=== PATIENT | female | born 1985 | race Caucasian/White ===

== ENCOUNTER 2023-05-08 16:05 | Emergency (ER) | payer OTHER ==
[~2023-05-08] VITALS: Ht 160 cm; Wt 86.1 kg
[2023-05-08] MEDS ORDERED: NS IV 1000 ML 1,000 ML IV STA ×2 (16:28→17:30)
[2023-05-08] MEDS ORDERED: KETOROLAC INJ 30 MG/ML VIAL IVP ONE (16:30)
--- NOTE | 2023-05-08 16:32 | ED Abdominal Pain ---
General Chief Complaint: Abdominal/GI Problems Stated Complaint: ABD/MID BACK PAIN/VOMITING Source of Information: Patient Exam Limitations: No Limitations (MARCUS VASQUEZ) History of Present Illness Date Seen by Provider: May 08, 2023 Time Seen by Provider: 16:30 Initial Comments Patient is a 37-year-old female presents ED with abdominal pain. Abdominal pain started Thursday. Pain is described as burning constant. Pain radiate bilateral flank. Patient reports nausea with episodes of vomiting. Denies any diarrhea. She has been taken ibuprofen without much improvement associated body aches. She tested negative for COVID and influenza. History of cholecystectomy and umbilical hernia repair. Denies any vaginal discharge or vaginal pain, vaginal bleeding or on her current menstrual cycle. No history of kidney stones. Denies history of similar type symptoms. She denies any fever, chest pain, cough, sore throat, ear pain, headache, dysuria, hematuria, increased urine frequency. States she does not feel well. (MARCUS VASQUEZ) Allergies and Home Medications Allergies Coded Allergies: cephalexin (Verified Allergy, Unknown, 05/08/23) duloxetine (Verified Allergy, Unknown, 05/08/23) latex (Verified Allergy, Unknown, 05/08/23) Patient Home Medication List Home Medication List Reviewed: Yes (MARCUS VASQUEZ) Ketorolac Tromethamine (Ketorolac Tromethamine) 10 Mg Tablet, 10 MG PO TID Prescribed by: VERÓNICA MOORE on 05/08/231927 Ondansetron (Ondansetron Odt) 8 Mg Tab.rapdis, 8 MG SL Q6H PRN for NAUSEA/VOMITING Prescribed by: PASCUAL MORTON MD on 05/09/23 0037 Discontinued Medications Ketorolac Tromethamine (Ketorolac Tromethamine) 10 Mg Tablet, 10 MG PO TID Prescribed by: VERÓNICA MOORE on 05/08/23 1906 Review of Systems Review of Systems Constitutional: No diaphoresis, No fever; malaise, weakness EENTM: No Double Vision, No Eye Pain Respiratory: Denies Cough Gastrointestinal: Abdominal Pain; Denies Diarrhea; Nausea, Vomiting Genitourinary: Denies Burning, Denies Discharge, Denies Drainage Musculoskeletal: back pain Skin: No change in color, No change in hair/nails (MARCUS VASQUEZ) All Other Systems Reviewed Negative Unless Noted: Yes (MARCUS VASQUEZ) Past Ibflxbc-Ecuade-Mdwujl Hx Patient Social History Tobacco Use?: Yes Tobacco type used: Cigarettes Substance use?: No Alcohol Use?: No (MARCUS VASQUEZ) Past Medical History Surgery/Hospitalization HX: GALLBLADDER REMOVED, HERNIA REPAIR (MARCUS VASQUEZ) Physical Exam Vital Signs Vital Signs - First Documented 05/08/23 16:26 Temp 37.0 Pulse 105 B/P (MAP) 124/62 (82) Pulse Ox 98 O2 Delivery Room Air (CESAR STINSON MD) Vital Signs Capillary Refill : (MARCUS VASQUEZ) Height/Weight/BMI Height: '" Weight: lbs. oz. 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, no motor/sensory deficits, alert, normal mood/affect, oriented x 3 Skin: normal color, warm/dry (MARCUS VASQUEZ) Focused Exam Lactate Level 05/08/23 16:38: Lactic Acid Level 2.77*H (CESAR STINSON MD) Lactic Acid Level Laboratory Tests Test 05/08/23 16:38 Lactic Acid Level 2.77 MMOL/L (0.50-2.00) *H (CESAR STINSON MD) Progress/Results/Core Measures Results/Orders Lab Results Laboratory Tests Test 05/08/23 16:28 05/08/23 16:32 05/08/23 16:38 05/08/23 17:55 Range/Units White Blood Count 4.7 4.3-11.0 10^3/uL Red Blood Count 4.61 3.80-5.11 10^6/uL Hemoglobin 12.9 11.5-16.0 g/dL Hematocrit 40 35-52 % Mean Corpuscular Volume 86 80-99 fL Mean Corpuscular Hemoglobin 28 25-34 pg Mean Corpuscular Hemoglobin Concent 32 32-36 g/dL Red Cell Distribution Width 13.3 10.0-14.5 % Platelet Count 159 130-400 10^3/uL Mean Platelet Volume 9.5 9.0-12.2 fL Immature Granulocyte % (Auto) 0 % Neutrophils (%) (Auto) 79 H 42-75 % Lymphocytes (%) (Auto) 15 12-44 % Monocytes (%) (Auto) 6 0-12 % Eosinophils (%) (Auto) 0 0-10 % Basophils (%) (Auto) 0 0-10 % Neutrophils # (Auto) 3.7 1.8-7.8 10^3/uL Lymphocytes # (Auto) 0.7 L 1.0-4.0 10^3/uL Monocytes # (Auto) 0.3 0.0-1.0 10^3/uL Eosinophils # (Auto) 0.0 0.0-0.3 10^3/uL Basophils # (Auto) 0.0 0.0-0.1 10^3/uL Immature Granulocyte # (Auto) 0.0 0.0-0.1 10^3/uL Sodium Level 141 135-145 MMOL/L Potassium Level 4.1 3.6-5.0 MMOL/L Chloride Level 112 H 98-107 MMOL/L Carbon Dioxide Level 18 L 21-32 MMOL/L Anion Gap 11 5-14 MMOL/L Blood Urea Nitrogen 10 7-18 MG/DL Creatinine 0.56 L 0.60-1.30 MG/DL Estimat Glomerular Filtration Rate 121 BUN/Creatinine Ratio 18 Glucose Level 195 H 70-105 MG/DL Calcium Level 8.4 L 8.5-10.1 MG/DL Corrected Calcium 8.8 8.5-10.1 MG/DL Total Bilirubin 0.3 0.1-1.0 MG/DL Aspartate Amino Transf (AST/SGOT) 16 5-34 U/L Alanine Aminotransferase (ALT/SGPT) 31 0-55 U/L Alkaline Phosphatase 119 40-136 U/L Total Protein 6.3 L 6.4-8.2 GM/DL Albumin 3.5 3.2-4.5 GM/DL Lipase 34 8-78 U/L Urine Color YELLOW Urine Clarity CLEAR Urine pH 6.5 5-9 Urine Specific [place] 1.020 1.016-1.022 Urine Protein NEGATIVE NEGATIVE Urine Glucose (UA) TRACE H NEGATIVE Urine Ketones NEGATIVE NEGATIVE Urine Nitrite NEGATIVE NEGATIVE Urine Bilirubin NEGATIVE NEGATIVE Urine Urobilinogen 0.2 < = 1.0 MG/DL Urine Leukocyte Esterase NEGATIVE NEGATIVE Urine RBC (Auto) NEGATIVE NEGATIVE Urine RBC NONE /HPF Urine WBC NONE /HPF Urine Squamous Epithelial Cells 0-2 /HPF Urine Crystals NONE /LPF Urine Bacteria NEGATIVE /HPF Urine Casts NONE /LPF Urine Mucus NEGATIVE /LPF Urine Culture Indicated NO Urine Test NEGATIVE NEGATIVE Lactic Acid Level 2.77 *H 0.50-2.00 MMOL/L Influenza Type A (RT-PCR) Not Detected Not Detecte Influenza Type B (RT-PCR) Not Detected Not Detecte SARS-CoV-2 RNA (RT-PCR) Detected H Not Detecte (CESAR STINSON MD) Vital Signs/I&O 05/08/23 05/08/23 16:26 18:59 Temp 37.0 Pulse 105 83 B/P (MAP) 124/62 (82) 118/58 Pulse Ox 98 98 O2 Delivery Room Air Room Air (CESAR STINSON MD) Departure Communication (PCP) Patient is a 37-year-old female who presents to the ED for flulike symptoms. Differential diagnosis viral syndrome, UTI, nephrolithiasis, colitis, appendicitis. Patient symptoms started 4 days ago. Tested negative twice for COVID influenza. She was slightly tachycardic but was not hypoxic. CBC, CMP, lipase, urinalysis with test was initiated. Did add a COVID influenza per her request for potential false negatives. CBC, CMP was grossly unremarkable. Lactic acid 2.77 was added as she was slightly tachycardic but afebrile with normal white blood count. CT abdomen pelvis was ordered secondary to lower abdominal pain. She did receive Toradol without much improvement and d id receive fentanyl with improvement of pain. CT abdomen pelvis was negative for acute abnormality. She did receive a second liter of fluid after her lactic acid returned slightly elevated. She does not appear septic and this likely more reactive. Lung sounds clear bilateral. COVID returned positive. She does not meet the criteria for antiviral treatment. Continue with conservative treatment at this time. Will discharge with some anti-inflammatories. Recommend staying hydrated. If any worsening symptoms such as chest pain or shortness of breath return back to ED. (MARCUS VASQUEZ) Impression Primary Impression: COVID-19 Disposition: 01 HOME, SELF-CARE Condition: Stable Departure-Patient Inst. Decision time for Depature: 18:53 (MARCUS VASQUEZ) Referrals: [facility],LOCAL PHYSICIAN (PCP) Primary Care Physician Patient Instructions: COVID-19 ED Add. Discharge Instructions: Recommend staying hydrated. Drink plenty of fluids. Tylenol or ibuprofen for pain. If any worsening symptoms return back to ED such as shortness of breath, All discharge instructions reviewed with patient and/or family. Voiced understanding. Scripts Ketorolac Tromethamine (Ketorolac Tromethamine) 10 Mg Tablet 10 MG PO TID for Pain, #15 TAB Prov: MARCUS VASQUEZ 05/08/23 Work/School Note: Work Release Form Date Seen in the Emergency Department: May 08, 2023 Return to Work: May 12, 2023 ATTENDING PHYSICIAN NOTE: I was physically present as attending physician in the emergency department during the care of this patient, but I was not directly involved in the decision making or delivery of care for this patient. (CESAR STINSON MD) MARCUS VASQUEZ May 08, 2023 16:32 CESAR STINSON MD May 11, 2023 07:27
[2023-05-08 16:41] LABS: BASOPHILS % (AUTO) 0 % (0-10); EOSINOPHILS % (AUTO) 0 % (0-10); HEMATOCRIT 40 % (35-52); HEMOGLOBIN 12.9 g/dL (11.5-16.0); LYMPHOCYTES # (AUTO) 0.7 10^3/uL (1.0-4.0); LYMPHOCYTES % (AUTO) 15 % (12-44); MEAN CORPUSCULAR HEMOGLOBIN 28 pg (25-34); MEAN CORPUSCULAR HGB CONC 32 g/dL (32-36); MEAN CORPUSCULAR VOLUME 86 fL (80-99); MEAN PLATELET VOLUME 9.5 fL (9.0-12.2); MONOCYTES # (AUTO) 0.3 10^3/uL (0.0-1.0); MONOCYTES % (AUTO) 6 % (0-12); NEUTROPHILS # (AUTO) 3.7 10^3/uL (1.8-7.8); NEUTROPHILS % (AUTO) 79 % (42-75); PLATELET COUNT 159 10^3/uL (130-400); WHITE BLOOD COUNT 4.7 10^3/uL (4.3-11.0)
[2023-05-08 16:47] LABS: CLARITY,URINE CLEAR; COLOR,URINE YELLOW; GLUCOSE, URINE (UA) TRACE (NEGATIVE); KETONES,URINE NEGATIVE (NEGATIVE); PH,URINE 6.5 (5-9); PROTEIN,URINE NEGATIVE (NEGATIVE)
[2023-05-08 16:48] LABS: BILIRUBIN,URINE NEGATIVE (NEGATIVE); LEUKOCYTE ESTERASE ,URINE NEGATIVE (NEGATIVE); NITRITE,URINE NEGATIVE (NEGATIVE)
[2023-05-08 16:49] LABS: BACTERIA,URINE NEGATIVE /HPF; SQUAMOUS EPITHELIAL CELL,UR 0-2 /HPF
[2023-05-08 17:01] LABS: ALBUMIN 3.5 GM/DL (3.2-4.5); BILIRUBIN,TOTAL 0.3 MG/DL (0.1-1.0); CALCIUM 8.4 MG/DL (8.5-10.1); CREATININE SERUM 0.56 MG/DL (0.60-1.30); POTASSIUM 4.1 MMOL/L (3.6-5.0); TOTAL PROTEIN 6.3 GM/DL (6.4-8.2)
--- NOTE | 2023-05-08 17:26 | Diagnostic Imaging Report ---
PROCEDURE: CT urinary tract, rule out kidney stone. TECHNIQUE: Multiple contiguous axial images were obtained through the abdomen and pelvis without the use of intravenous contrast. Auto Exposure Controls were utilized during the CT exam to meet ALARA standards for radiation dose reduction. INDICATION: Abdominal pain, bilateral flank pain. COMPARISON: None. FINDINGS: Included lung bases are clear. The liver, spleen, and adrenal glands are normal. Gallbladder is postsurgical. The pancreas is normal. The kidneys are normal. No nephrolithiasis or hydronephrosis. The aorta and IVC are normal. No abdominal pelvic lymphadenopathy. The bowel is nondilated. Normal appendix. No free air, loculated fluid collections, or ascites. Postsurgical changes from prior ventral hernia repair. No apparent hernia recurrence. The urinary bladder is normal. The osseous structures demonstrate no lytic or sclerotic bone lesions. IMPRESSION: No acute findings in the abdomen or pelvis. Dictated by: Dictated on workstation # [id number]
[2023-05-08] MEDS ORDERED: fentaNYL INJECTION 100 MCG/2 ML VIAL IVP STA (17:30)
[2023-05-08 18:59] VITALS: BP 118/58
[2023-05-08] MEDS ORDERED: KETO10TA PO ×2 (19:06→19:28)
[2023-05-09] MEDS ORDERED: ONDA8TAB13 SL (00:37)
== END 2023-05-08 19:00 | disposition home or self-care (01) ==
LOC: ER 16:09
DX: U07.1 COVID-19 (principal); R11.2 Nausea with vomiting, unspecified; R10.31 Right lower quadrant pain; R10.32 Left lower quadrant pain; F17.210 Nicotine dependence, cigarettes, uncomplicated; Z91.040 Latex allergy status
CPT/HCPCS: 36415; 74176; 80053; 81000; 83605; 83690; 84703; 85025; 87636; 96361; 96374; 96375

== ENCOUNTER 2023-05-09 00:23 | Emergency (ER) | payer OTHER ==
[~2023-05-09] VITALS: Ht 160 cm; Wt 86.2 kg
[~2023-05-09 00:23] MED LIST: KETO10TA PO
[2023-05-09 00:27] VITALS: BP 125/75
[2023-05-09] MEDS ORDERED: ONDANSETRON 4 MG ORAL DISSOLVE TABLET PO STA (00:31)
--- NOTE | 2023-05-09 00:35 | ED General ---
General Chief Complaint: COVID19 Suspect/Confirmed Stated Complaint: SOB,CP Nursing Triage Note: PT TO ROOM BY [facility]. PT REPORTS INCREASING SOB AND CP SINCE BEING DISCHARGED FROM HERE EARLIER WITH A COVID DIAGNOSIS. PT IS A&OX4, SPEECH NORMAL ON ARRIVAL Source of Information: Patient, EMS Exam Limitations: No Limitations History of Present Illness Date Seen by Provider: May 09, 2023 Time Seen by Provider: 00:24 Initial Comments 37-year-old female presents to the emergency department today via EMS for shortness of breath. She was seen earlier in our emergency department and diagnosed with COVID-19. She states she was lying down to take her anxiety medicine and then started feeling "[id number] in my chest." She then got short of breath and felt more anxious she has had burning in her stomach as well. Symptoms present for about 4 days. Work-up earlier in the day included CT scan of her abdomen pelvis which was negative for any acute intra-abdominal abnormality. She also had lab work with a slightly elevated lactic acid of 2.77. She was given 2 L of IV fluids. Again COVID test was positive her chest x-ray was negative for any acute findings her oxygen saturation was normal and her tachycardia improved with IV fluids. She was discharged home with p.o. Toradol. She is having some nausea but no vomiting. All other systems reviewed and negative except documented per HPI. Voice recognition software was used to help create this chart Allergies and Home Medications Allergies Coded Allergies: cephalexin (Verified Allergy, Unknown, 05/08/23) duloxetine (Verified Allergy, Unknown, 05/08/23) latex (Verified Allergy, Unknown, 05/08/23) Patient Home Medication List Home Medication List Reviewed: Yes Ketorolac Tromethamine (Ketorolac Tromethamine) 10 Mg Tablet, 10 MG PO TID Prescribed by: VERÓNICA MOORE on 05/08/231927 Discontinued Medications Ketorolac Tromethamine (Ketorolac Tromethamine) 10 Mg Tablet, 10 MG PO TID Prescribed by: VERÓNICA MOORE on 05/08/231905 Review of Systems Review of Systems Constitutional: see HPI Past Ehdltsy-Cjiyah-Czqjok Hx Patient Social History Tobacco Use?: No Use of E-Cig and/or Vaping dev: No Substance use?: No Alcohol Use?: No Past Medical History Surgery/Hospitalization HX: GALLBLADDER REMOVED, HERNIA REPAIR Physical Exam Vital Signs Vital Signs - First Documented 05/09/23 00:27 Temp 36.6 Pulse 85 Resp 22 B/P (MAP) 125/75 (92) Pulse Ox 99 O2 Delivery Room Air Capillary Refill : Height, Weight, BMI Height: '" Weight: lbs. oz. kg; 33.00 BMI Method: General Appearance: No Apparent Distress, WD/WN Eyes: Bilateral Eye Normal Inspection, Bilateral Eye PERRL, Bilateral Eye EOMI HEENT: Normal ENT Inspection, Pharynx Normal Neck: Full Range of Motion, Non Tender, Supple Respiratory: Chest Non Tender, Lungs Clear, Normal Breath Sounds, No Accessory Muscle Use, No Respiratory Distress Cardiovascular: Regular Rate, Rhythm, No Murmur, Normal Peripheral Pulses Gastrointestinal: Normal Bowel Sounds, No Organomegaly, Non Tender, Soft Back: Normal Inspection, No CVA Tenderness Extremity: Normal Capillary Refill, Normal Inspection Neurologic/Psychiatric: Alert, Oriented x3, Normal Mood/Affect Skin: Normal Color, Warm/Dry Progress/Results/Core Measures Suspected Sepsis SIRS Temperature: Pulse: 85 Respiratory Rate: 22 Blood Pressure 125 /75 Mean: 92 Results/Orders My Orders Orders - SELENEPASCUAL MOJICA DO Ondansetron Oral Dissolve Tab (Ondanset (05/09/23 00:31) Acetaminophen Tablet (Acetaminophen Ta (05/09/23 00:45) Vital Signs/I&O 05/09/23 00:27 Temp 36.6 Pulse 85 Resp 22 B/P (MAP) 125/75 (92) Pulse Ox 99 O2 Delivery Room Air Capillary Refill : Blood Pressure Mean: 92 Departure Communication (Admissions) Patient is hemodynamically stable, nontoxic. Oxygen saturations 90 to 99% on room air. She is in no respiratory distress. She had a full work-up earlier in the day including CT abdomen/pelvis with IV contrast, labs. She was slightly tachycardic upon her initial arrival which improved with 2 L of IV fluids. CT scan was negative and labs were otherwise reassuring. COVID test was positive at that time. She has no new symptoms now but does state that nausea is more prominent feature at present. Have given her p.o. Zofran. P.o. Tylenol. She is not a candidate for Paxlovid. She will be discharged in stable condition with prescription for Zofran and supportive care. Impression Primary Impression: COVID-19 Additional Impression: Nausea Disposition: 01 HOME, SELF-CARE Condition: Stable Departure-Patient Inst. Referrals: NO,LOCAL PHYSICIAN (PCP/Family) Primary Care Physician Patient Instructions: Nausea and Vomiting, Adult, COVID-19 ED Add. Discharge Instructions: All of your symptoms are consistent with COVID-19 infection. Increase your fluids at home and rest. Use the nausea medicine as needed by dissolving it under your tongue. Continue to take the ketorolac at home for body aches. You may take Tylenol in addition to this but do not take any other anti-inflammatory medicines while taking this. You are very likely to feel somewhat short of br eath and have aches, headaches and nausea. Return to the emergency department for any severe shortness of breath or if your symptoms change in any way concerning to you. Follow with your primary doctor for any nonemergent needs All discharge instructions reviewed with patient and/or family. Voiced understanding. Scripts Ondansetron (Ondansetron Odt) 8 Mg Tab.rapdis 8 MG SL Q6H PRN for NAUSEA/VOMITING for 5 Days, #20 TAB Prov: PASCUAL MORTON DO 05/09/23 PASCUAL MORTON DO May 09, 2023 00:35
[2023-05-09] MEDS ORDERED: ONDA8TAB13 SL (00:37)
[2023-05-09] MEDS ORDERED: ACETAMINOPHEN 500 MG TABLET PO ONE (00:45)
== END 2023-05-09 01:04 | disposition home or self-care (01) ==
LOC: EDUNIT# 00:23 → ER 00:24
DX: U07.1 COVID-19 (principal); R11.0 Nausea; R06.02 Shortness of breath; R00.0 Tachycardia, unspecified; Z91.040 Latex allergy status
CPT/HCPCS: 99285

== ENCOUNTER 2023-05-09 20:13 | Emergency (ER) | payer OTHER ==
[~2023-05-09] VITALS: Ht 160 cm; Wt 86.2 kg
[~2023-05-09 20:13] MED LIST changes: +ONDA8TAB13 SL
--- NOTE | 2023-05-09 20:28 | ED General ---
General Chief Complaint: COVID19 Suspect/Confirmed Stated Complaint: COVID/VOMITING Source of Information: Patient Exam Limitations: No Limitations History of Present Illness Date Seen by Provider: May 09, 2023 Time Seen by Provider: 20:15 Initial Comments 37-year-old female with confirmed diagnosis of COVID presents for body aches fev er and vomiting. She states "I just cannot take it anymore." She was seen here last night overnight which was her second presentation for that day after initial diagnosis. She was given Zofran but states she did not pick it up. No new symptoms just continues to have body aches which is her main complaint. All other systems reviewed and negative except documented per HPI. Voice recognition software was used to help create this chart Allergies and Home Medications Allergies Coded Allergies: cephalexin (Verified Allergy, Unknown, 05/08/23) duloxetine (Verified Allergy, Unknown, 05/08/23) latex (Verified Allergy, Unknown, 05/08/23) Patient Home Medication List Home Medication List Reviewed: Yes Ketorolac Tromethamine (Ketorolac Tromethamine) 10 Mg Tablet, 10 MG PO TID Prescribed by: VERÓNICA MOORE on 05/08/23 1928 Ondansetron (Ondansetron Odt) 8 Mg Tab.rapdis, 8 MG SL Q6H PRN for NAUSEA/VOMITING Prescribed by: PASCUAL MORTON MD on 05/09/23 0037 Discontinued Medications Ketorolac Tromethamine (Ketorolac Tromethamine) 10 Mg Tablet, 10 MG PO TID Prescribed by: VERÓNICA MOORE on 05/08/23 1906 Review of Systems Review of Systems Constitutional: see HPI Past Itzqwiv-Uacjmd-Lfagei Hx Patient Social History Tobacco Use?: No Use of E-Cig and/or Vaping dev: No Substance use?: No Alcohol Use?: No Past Medical History Surgery/Hospitalization HX: GALLBLADDER REMOVED, HERNIA REPAIR Physical Exam Vital Signs Capillary Refill : Height, Weight, BMI Height: '" Weight: lbs. oz. kg; 33.00 BMI Method: General Appearance: No Apparent Distress, WD/WN Eyes: Bilateral Eye Normal Inspection, Bilateral Eye PERRL, Bilateral Eye EOMI HEENT: PERRL/EOMI, Normal ENT Inspection, Pharynx Normal Neck: Full Range of Motion, Non Tender, Supple Respiratory: Chest Non Tender, Lungs Clear, Normal Breath Sounds, No Accessory Muscle Use, No Respiratory Distress Cardiovascular: Regular Rate, Rhythm, No Murmur, Normal Peripheral Pulses Gastrointestinal: Normal Bowel Sounds, No Organomegaly, Non Tender, Soft Extremity: Normal Capillary Refill, Normal Inspection, Non Tender, No Calf Tenderness Neurologic/Psychiatric: Alert, Oriented x3, No Motor/Sensory Deficits Skin: Normal Color, Warm/Dry Progress/Results/Core Measures Suspected Sepsis SIRS Temperature: Pulse: Respiratory Rate: Blood Pressure / Mean: Results/Orders Vital Signs/I&O Capillary Refill : Departure Communication (Admissions) Patient is hemodynamically stable, nontoxic. Oxygen saturations 99% on room air. She is not tachycardic, no tension. She is tolerating p.o. despite not picking up her Zofran. She has had intermittent vomiting. Her main concern is her body aches. She states she took some Tylenol earlier. I discussed addition of ibuprofen which I again discussed with her last night. She states understanding. She is discharged home in stable condition. Impression Primary Impression: COVID-19 Additional Impression: Nausea and vomiting Qualified Codes: R11.2 - Nausea with vomiting, unspecified Disposition: HOME, SELF-CARE Condition: Stable Departure-Patient Inst. Referrals: NO,LOCAL PHYSICIAN (PCP/Family) Primary Care Physician Patient Instructions: COVID-19 ED Add. Discharge Instructions: Increase your fluids at home and rest. Use Zofran as prescribed as needed. Use ibuprofen and Tylenol alternating for body aches and pains. Follow-up with your primary doctor for any nonemergent needs. All discharge instructions reviewed with patient and/or family. Voiced understanding. PASCUAL MORTON DO May 09, 2023 20:28
[2023-05-09 20:42] VITALS: BP 141/82
== END 2023-05-09 20:42 | disposition home or self-care (01) ==
LOC: EDUNIT# 20:13 → ER 20:15
DX: U07.1 COVID-19 (principal); R11.2 Nausea with vomiting, unspecified; R50.9 Fever, unspecified; M79.10 Myalgia, unspecified site; Z28.310 Unvaccinated for COVID-19; Z91.040 Latex allergy status; Z73.0 Burn-out
CPT/HCPCS: 99281

== ENCOUNTER 2023-05-19 15:15 | Emergency (ER) | payer OTHER ==
[~2023-05-19] VITALS: Ht 166 cm; Wt 86.2 kg
[2023-05-19] MEDS ORDERED: morphine INJ 10 MG/ML 1ML (SYR OR VIAL) IV STA (15:25)
--- NOTE | 2023-05-19 15:28 | ED Chest Pain ---
General Chief Complaint: Chest Pain Stated Complaint: CHEST PAIN Nursing Triage Note: PT TO [facility] WITH CC OF CHEST PAIN SINCE ABOUT 0500 THIS MORNING. UPPER LT SIDE, NAUSEA, 81 MG ASA ABOUT 1400 HELPED WITH THE PAIN BUT IT CAME BACK. COVID + 12 DAYS AGO BUT NEG AT [facility] [employer]. Source: patient Exam Limitations: no limitations History of Present Illness Date Seen by Provider: May 19, 2023 Time Seen by Provider: 15:27 Initial Comments Patient is a 37-year-old female who presents ED with left-sided upper chest pain. Started around 5 AM this morning waking her up. Pain described as pressure and rates 7 out of 10. She took 81 mg of aspirin around 2 PM with some improvement for about 15 minutes. Rates pain 7 out of 10 at this time. Mild shortness of breath without cough. She reports nausea without vomiting or diarrhea. Diagnosed with COVID 12 days ago. Had a negative COVID swab at [facility] today. Had a normal EKG but was sent to the ED for further cardiac evaluation. No recent travels or surgeries. She denies of any history of PE. Strong family cardiac history history of hypertension and smoking. Denies diabetes or high cholesterol. Denies abdominal pain, headache, dizziness, visual changes, unilateral muscle weakness or sensory changes Allergies and Home Medications Allergies Coded Allergies: cephalexin (Verified Allergy, Unknown, 05/08/23) duloxetine (Verified Allergy, Unknown, 05/08/23) latex (Verified Allergy, Unknown, 05/08/23) Patient Home Medication List Home Medication List Reviewed: Yes Ketorolac Tromethamine (Ketorolac Tromethamine) 10 Mg Tablet, 10 MG PO TID Prescribed by: VERÓNICA MOORE on 05/08/231927 Ondansetron (Ondansetron Odt) 8 Mg Tab.rapdis, 8 MG SL Q6H PRN for NAUSEA/VOMITING Prescribed by: PASCUAL MORTON MD on 05/09/23 0037 Review of Systems Review of Systems Constitutional: No chills, No diaphoresis EENTM: No Double Vision, No Eye Pain Respiratory: Denies Cough, Denies Orthopnea; Shortness of Air Cardiovascular: Chest Pain Gastrointestinal: Denies Abdominal Pain; Nausea; Denies Vomiting Genitourinary: Denies Burning, Denies Discharge Musculoskeletal: No back pain, No joint pain Skin: No change in color, No change in hair/nails All Other Systems Reviewed Negative Unless Noted: Yes Past Iberxpb-Qlyllj-Nebppk Hx Patient Social History Tobacco Use?: Yes Tobacco type used: Cigarettes Smoking Status: Current Everyday Smoker Substance use?: No Alcohol Use?: No Immunizations Up To Date First/Initial COVID19 Vaccinat: N/A Second COVID19 Vaccination Drew: N/A Third COVID19 Vaccination Date: N/A Past Medical History Surgery/Hospitalization HX: GALLBLADDER REMOVED, HERNIA REPAIR, COVID 04/2023 Physical Exam Vital Signs Vital Signs - First Documented 05/19/23 15:18 Temp 36.3 Pulse 83 Resp 20 B/P (MAP) 137/74 (95) Pulse Ox 98 O2 Delivery Room Air Capillary Refill : Less Than 3 Seconds Height, Weight, BMI Height: '" Weight: lbs. oz. kg; 31.00 BMI Method: General Appearance: No Apparent Distress, WD/WN HEENT: PERRL/EOMI, TMs Normal, Normal ENT Inspection, Pharynx Normal Neck: Full Range of Motion, Normal Inspection, Non Tender, Supple Respiratory: Chest Non Tender, Lungs Clear, Normal Breath Sounds, No Accessory Muscle Use, No Respiratory Distress Cardiovascular: Regular Rate, Rhythm, No Edema, No Gallop, No JVD Gastrointestinal: Normal Bowel Sounds, No Organomegaly, No Pulsatile Mass, Non Tender Extremity: Normal Capillary Refill, Normal Inspection Neurologic/Psychiatric: Alert, Oriented x3, No Motor/Sensory Deficits, Normal Mood/Affect Skin: Normal Color, Warm/Dry Progress/Results/Core Measures Results/Orders Lab Results Laboratory Tests Test 05/19/23 15:20 05/19/23 15:42 Range/Units White Blood Count 4.9 4.3-11.0 10^3/uL Red Blood Count 5.29 H 3.80-5.11 10^6/uL Hemoglobin 14.6 11.5-16.0 g/dL Hematocrit 45 35-52 % Mean Corpuscular Volume 85 80-99 fL Mean Corpuscular Hemoglobin 28 25-34 pg Mean Corpuscular Hemoglobin Concent 33 32-36 g/dL Red Cell Distribution Width 13.4 10.0-14.5 % Platelet Count 202 130-400 10^3/uL Mean Platelet Volume 9.2 9.0-12.2 fL Immature Granulocyte % (Auto) 0 % Neutrophils (%) (Auto) 57 42-75 % Lymphocytes (%) (Auto) 36 12-44 % Monocytes (%) (Auto) 7 0-12 % Eosinophils (%) (Auto) 0 0-10 % Basophils (%) (Auto) 0 0-10 % Neutrophils # (Auto) 2.8 1.8-7.8 10^3/uL Lymphocytes # (Auto) 1.8 1.0-4.0 10^3/uL Monocytes # (Auto) 0.4 0.0-1.0 10^3/uL Eosinophils # (Auto) 0.0 0.0-0.3 10^3/uL Basophils # (Auto) 0.0 0.0-0.1 10^3/uL Immature Granulocyte # (Auto) 0.0 0.0-0.1 10^3/uL Prothrombin Time 12.6 12.2-14.7 SEC INR Comment 0.9 0.8-1.4 Activated Partial Thromboplast Time 29 24-35 SEC D-Dimer < 0.27 0.00-0.49 UG/ML Sodium Level 140 135-145 MMOL/L Potassium Level 4.4 3.6-5.0 MMOL/L Chloride Level 110 H 98-107 MMOL/L Carbon Dioxide Level 23 21-32 MMOL/L Anion Gap 7 5-14 MMOL/L Blood Urea Nitrogen 12 7-18 MG/DL Creatinine 0.52 L 0.60-1.30 MG/DL Estimat Glomerular Filtration Rate 123 BUN/Creatinine Ratio 23 Glucose Level 104 70-105 MG/DL Calcium Level 9.1 8.5-10.1 MG/DL Corrected Calcium 9.2 8.5-10.1 MG/DL Magnesium Level 1.9 1.6-2.4 MG/DL Total Bilirubin 0.4 0.1-1.0 MG/DL Aspartate Amino Transf (AST/SGOT) 23 5-34 U/L Alanine Aminotransferase (ALT/SGPT) 29 0-55 U/L Alkaline Phosphatase 117 40-136 U/L Myoglobin 17.5 10.0-92.0 NG/ML Troponin I < 0.028 <0.028 NG/ML B-Type Natriuretic Peptide 38.8 <100.0 PG/ML Total Protein 6.9 6.4-8.2 GM/DL Albumin 3.9 3.2-4.5 GM/DL Lipase 23 8-78 U/L Urine Color YELLOW Urine Clarity CLEAR Urine pH 5.5 5-9 Urine Specific [place] 1.025 H 1.016-1.022 Urine Protein NEGATIVE NEGATIVE Urine Glucose (UA) NEGATIVE NEGATIVE Urine Ketones NEGATIVE NEGATIVE Urine Nitrite NEGATIVE NEGATIVE Urine Bilirubin NEGATIVE NEGATIVE Urine Urobilinogen 0.2 < = 1.0 MG/DL Urine Leukocyte Esterase NEGATIVE NEGATIVE Urine RBC (Auto) NEGATIVE NEGATIVE Urine RBC NONE /HPF Urine WBC 0-2 /HPF Urine Squamous Epithelial Cells 0-2 /HPF Urine Crystals NONE /LPF Urine Bacteria TRACE /HPF Urine Casts NONE /LPF Urine Mucus NEGATIVE /LPF Urine Yeast FEW H /HPF Urine Culture Indicated NO Urine Test NEGATIVE NEGATIVE Urine Opiates Screen POSITIVE H NEGATIVE Urine Oxycodone Screen NEGATIVE NEGATIVE Urine Methadone Screen NEGATIVE NEGATIVE Urine Propoxyphene Screen NEGATIVE NEGATIVE Urine Barbiturates Screen NEGATIVE NEGATIVE Ur Tricyclic Antidepressants Screen NEGATIVE NEGATIVE Urine Phencyclidine Screen NEGATIVE NEGATIVE Urine Amphetamines Screen NEGATIVE NEGATIVE Urine Methamphetamines Screen NEGATIVE NEGATIVE Urine Benzodiazepines Screen NEGATIVE NEGATIVE Urine Cocaine Screen NEGATIVE NEGATIVE Urine Cannabinoids Screen NEGATIVE NEGATIVE My Orders Orders - MARCUS VASQUEZ PA Cbc With Automated Diff (05/19/23 15:25) Magnesium (05/19/23 15:25) Chest 1 View, Ap/Pa Only (05/19/23 15:25) Comprehensive Metabolic Panel (05/19/23 15:25) Myoglobin Serum (05/19/23 15:25) Protime With Inr (05/19/23 15:25) Partial Thromboplastin Time (05/19/23 15:25) Monitor-Rhythm Ecg Trace Only (05/19/23 15:25) Ed Iv/Invasive Line Start (05/19/23 15:25) Lipase (05/19/23 15:25) Bnp Jose (05/19/23 15:25) Fibrin Degradation Products (05/19/23 15:25) Troponin I Jose (05/19/23 15:25) Aspirin Chewable Tablet (Aspirin Chewabl (05/19/23 15:30) Morphine Injection (Morphine Injection (05/19/23 15:25) Drug Screen Stat (Urine) (05/19/23 15:28) Ua Culture If Indicated (05/19/23 15:28) Hcg,Qualitative Urine (05/19/23 15:28) Ketorolac Injection (Ketorolac Injection (05/19/23 16:30) Medications Given in ED Current Medications Medications Dose Ordered Sig/Osmany Route Start Time Stop Time Status Last Admin Dose Admin Aspirin 243 mg ONCE ONCE PO 05/19/23 15:30 05/19/23 15:31 DC 05/19/23 15:33 243 MG Ketorolac Tromethamine 30 mg ONCE ONCE IVP 05/19/23 16:30 05/19/23 16:31 DC 05/19/23 16:28 30 MG Vital Signs/I&O 05/19/23 05/19/23 05/19/23 15:18 15:33 16:28 Temp 36.3 36.3 36.3 Pulse 83 Resp 20 B/P (MAP) 137/74 (95) Pulse Ox 98 O2 Delivery Room Air Blood Pressure Mean: 95 Comment Sinus rhythm, possible right ventricular conduction delay, 94 bpm, QRS duration 77 MS, QTc 396 MS Departure Communication (PCP) Reviewed previous ER visits, H&P, lab testing. Diagnosed with COVID 12 days ago. Tested negative today. Left-sided chest pain this morning. Pain has been constant but did get some relief around 2 PM after taking a baby aspirin. Was seen at [facility] was sent to the ED for further evaluation. Differential diagnosis ACS, PE, pneumonia, pneumothorax. Denies any cough or current flulike symptoms. She states those symptoms are improving after recently diagnosed COVID. she has no abdominal pain vomiting or diarrhea. No appreciation of lower leg swelling and without pain. Neurovascular intact. No focal neural deficit. Cardiac work-up was initiated. EKG without evidence of ST elevation or depression. She did receive a full aspirin. She received a small dose of morphine with improvement of pain. EKG without evidence of arrhythmia. Chest x-ray unremarkable. CBC, CMP grossly unremarkable. Normal troponin, BMP, D- dimer. Patient remained pain-free at this time. She does have some cardiac risk factors. Heart score 2. Low suspicion. Drug screen was negative for cocaine or methamphetamine. Due to low heart score and low suspicion outpatient cardiac follow-up at this time. Recommend following up with your PCP in 2 days for reevaluation. Provided cardiology outpatient follow-up for further evaluation. If any worsening symptoms such as chest pain or shortness of breath return back to ED. Recommend anti-inflammatories. She did have some mild left sided chest wall tenderness. Provided dose of Toradol if related to pleurisy versus costochondritis. Impression Primary Impression: Chest pain Disposition: 01 HOME, SELF-CARE Condition: Stable Departure-Patient Inst. Decision time for Depature: 16:22 Referrals: ZAINAB NEWELL MD NO,LOCAL PHYSICIAN (PCP) Primary Care Physician Patient Instructions: Chest Pain (DC) Add. Discharge Instructions: Recommend follow-up with cardiology for further evaluation. If any worsening symptoms return back to ED All discharge instructions reviewed with patient and/or family. Voiced understanding. MARCUS VASQUEZ May 19, 2023 15:28
[2023-05-19] MEDS ORDERED: ASPIRIN 81 MG CHEWABLE TABLET PO ONE (15:30)
[2023-05-19 15:39] LABS: BASOPHILS % (AUTO) 0 % (0-10); EOSINOPHILS % (AUTO) 0 % (0-10); HEMATOCRIT 45 % (35-52); HEMOGLOBIN 14.6 g/dL (11.5-16.0); LYMPHOCYTES # (AUTO) 1.8 10^3/uL (1.0-4.0); LYMPHOCYTES % (AUTO) 36 % (12-44); MEAN CORPUSCULAR HEMOGLOBIN 28 pg (25-34); MEAN CORPUSCULAR HGB CONC 33 g/dL (32-36); MEAN CORPUSCULAR VOLUME 85 fL (80-99); MEAN PLATELET VOLUME 9.2 fL (9.0-12.2); MONOCYTES # (AUTO) 0.4 10^3/uL (0.0-1.0); MONOCYTES % (AUTO) 7 % (0-12); NEUTROPHILS # (AUTO) 2.8 10^3/uL (1.8-7.8); NEUTROPHILS % (AUTO) 57 % (42-75); PLATELET COUNT 202 10^3/uL (130-400); WHITE BLOOD COUNT 4.9 10^3/uL (4.3-11.0)
[2023-05-19 15:43] LABS: INR 0.9 (0.8-1.4); PROTHROMBIN TIME PATIENT 12.6 SEC (12.2-14.7)
[2023-05-19 15:44] LABS: PARTIAL THROMBOPLASTIN TIME 29 SEC (24-35)
--- NOTE | 2023-05-19 15:44 | Diagnostic Imaging Report ---
CLINICAL INDICATION: Patient with chest pain. EXAM: Portable chest x-ray upright view. COMPARISON: None. FINDINGS: Lungs/pleura: Lungs are clear. There is no pneumothorax. There is no pleural effusion. Mediastinum: Unremarkable. Pulmonary vasculature: Unremarkable. Heart: Unremarkable. Bones/extrathoracic soft tissue: Unremarkable. IMPRESSION: There is no radiographic evidence of acute cardiopulmonary process. Dictated by: Dictated on workstation # [id number]
[2023-05-19 15:52] LABS: FIBRIN DEGRADATION PRODUCTS < 0.27 UG/ML (0.00-0.49)
[2023-05-19 15:54] LABS: ALANINE AMINOTRANSFERASE 29 U/L (0-55); ALBUMIN 3.9 GM/DL (3.2-4.5); ALKALINE PHOSPHATASE 117 U/L (40-136); BILIRUBIN,TOTAL 0.4 MG/DL (0.1-1.0); BUN/CREATININE RATIO 23; CALCIUM 9.1 MG/DL (8.5-10.1); CARBON DIOXIDE 23 MMOL/L (21-32); CHLORIDE 110 MMOL/L (98-107); CREATININE SERUM 0.52 MG/DL (0.60-1.30); GFR ESTIMATED 123; GLUCOSE 104 MG/DL (70-105); LIPASE 23 U/L (8-78); MAGNESIUM 1.9 MG/DL (1.6-2.4); POTASSIUM 4.4 MMOL/L (3.6-5.0); SODIUM 140 MMOL/L (135-145); TOTAL PROTEIN 6.9 GM/DL (6.4-8.2)
[2023-05-19 16:00] LABS: BILIRUBIN,URINE NEGATIVE (NEGATIVE); CLARITY,URINE CLEAR; COLOR,URINE YELLOW; GLUCOSE, URINE (UA) NEGATIVE (NEGATIVE); KETONES,URINE NEGATIVE (NEGATIVE); LEUKOCYTE ESTERASE ,URINE NEGATIVE (NEGATIVE); NITRITE,URINE NEGATIVE (NEGATIVE); PH,URINE 5.5 (5-9); PROTEIN,URINE NEGATIVE (NEGATIVE); WBC,URINE 0-2 /HPF
[2023-05-19 16:01] LABS: BACTERIA,URINE TRACE /HPF; SQUAMOUS EPITHELIAL CELL,UR 0-2 /HPF; YEAST,URINE FEW /HPF
[2023-05-19 16:02] LABS: HCG,QUALITATIVE URINE NEGATIVE (NEGATIVE)
[2023-05-19 16:14] LABS: AMPHETAMINE SCREEN, URINE NEGATIVE (NEGATIVE); BENZODIAZEPINES SCREEN URINE NEGATIVE (NEGATIVE); COCAINE SCREEN URINE NEGATIVE (NEGATIVE)
[2023-05-19 16:15] LABS: BARBITURATE SCREEN URINE NEGATIVE (NEGATIVE); CANNABINOID SCREEN, URINE NEGATIVE (NEGATIVE); METHADONE STAT NEGATIVE (NEGATIVE); OPIATE SCREEN URINE POSITIVE (NEGATIVE); OXYCODONE STAT NEGATIVE (NEGATIVE); PROPOXYPHENE STAT NEGATIVE (NEGATIVE); TRICYCLIC ANTIDEPRESSANTS SCRE NEGATIVE (NEGATIVE)
[2023-05-19] MEDS ORDERED: KETOROLAC INJ 30 MG/ML VIAL IVP ONE (16:30)
[2023-05-19 16:53] VITALS: BP 116/70
== END 2023-05-19 16:51 | disposition home or self-care (01) ==
LOC: EDUNIT# 15:15 → ER 15:16
DX: R07.89 Other chest pain (principal); F17.210 Nicotine dependence, cigarettes, uncomplicated; Z86.16 Personal history of COVID-19; Z91.040 Latex allergy status; Z82.49 Family history of ischemic heart disease and other diseases of the circulatory system
CPT/HCPCS: 36415; 71045; 80053; 80306; 81000; 83690; 83735; 83874; 83880; 84484; 84703; 85025; 85379; 85610; 85730; 93005; 93041